=== PATIENT | female | born 1985 | race Hispanic/Latino ===

== ENCOUNTER → 2017-12-08 | Outpatient (CLI) | payer OTHER | END | disposition home or self-care (01) | LOC: OIH 14:59 | PROVIDERS: ATTEND Internal Medicine | DX: M25.561 Pain in right knee (principal); M47.896 Other spondylosis, lumbar region; K59.00 Constipation, unspecified | CPT/HCPCS: 72100; 73560 ==

== ENCOUNTER 2022-06-29 19:41 | Emergency (ER) | payer OTHER ==
[~2022-06-29] VITALS: Ht 167.6 cm; Wt 72.6 kg
[2022-06-29] MEDS ORDERED: IBUPROFEN 600 MG TABLET PO ONE (20:00)
[2022-06-29] MEDS ORDERED: IBUP-2070 PO (20:23)
[2022-06-29 20:29] VITALS: BP 124/76
== END 2022-06-29 20:40 | disposition home or self-care (01) ==
LOC: EDH 19:41
DX: S90.111A Contusion of right great toe without damage to nail, initial encounter (principal); S90.121A Contusion of right lesser toe(s) without damage to nail, initial encounter; X58.XXXA Exposure to other specified factors, initial encounter; Z79.1 Long term (current) use of non-steroidal anti-inflammatories (NSAID); Y93.89 Activity, other specified; Y92.89 Other specified places as the place of occurrence of the external cause; Y99.8 Other external cause status
CPT/HCPCS: 73660

== ENCOUNTER 2022-07-12 16:16 | Emergency (ER) | payer OTHER ==
[~2022-07-12] VITALS: Ht 167.6 cm; Wt 72.6 kg
[~2022-07-12 16:16] MED LIST: IBUP-2070 PO
[2022-07-12] MEDS ORDERED: ACETAMINOPHEN 500 MG TABLET PO ONE (17:30)
[2022-07-12] MEDS: KETOROLAC 15MG/ML VIAL (15MG/ML) IV ONE (17:55)
[2022-07-12] MEDS: ONDANSETRON 4MG INJ IVP ONE (17:55)
[2022-07-12] MEDS: 0.9%NACL 1000ML 1,000 ML IV ONE (17:55)
[2022-07-12 18:37] VITALS: BP 94/48
[2022-07-12] MEDS ORDERED: IBUP-2070 PO (18:43)
[2022-07-12] MEDS ORDERED: ACET-66 PO (18:43)
[2022-07-12] MEDS ORDERED: ONDA4TAB10 PO (18:43)
== END 2022-07-12 19:09 | disposition home or self-care (01) ==
LOC: EDH 16:16
DX: U07.1 COVID-19 (principal)
CPT/HCPCS: 99284; 96374; 87635; 96361; 96375; 87880; 87804 ×2; C9803; J7030; J2405; J1885

== ENCOUNTER 2023-07-09 16:04 | Emergency (ER) | payer OTHER ==
[~2023-07-09] VITALS: Ht 167.6 cm; Wt 66.7 kg
[~2023-07-09 16:04] MED LIST changes: +ACET-66 PO; +ONDA4TAB10 PO
[2023-07-09 16:12] VITALS: BP 113/70; PULSE 83; RESP 16; O2SAT 98
== END 2023-07-09 21:20 | disposition home or self-care (01) ==
LOC: EDH 16:04
DX: N63.10 Unspecified lump in the right breast, unspecified quadrant (principal); Z79.899 Other long term (current) drug therapy; Z98.890 Other specified postprocedural states
CPT/HCPCS: 99282

== ENCOUNTER 2024-06-03 23:46 | Emergency (ER) | payer OTHER ==
[~2024-06-03] VITALS: Ht 162.6 cm; Wt 78.9 kg
[~2024-06-03 23:46] MED LIST changes: +ONDA-243 PO; -ONDA4TAB10 PO
[2024-06-04] MEDS: LIDOCAINE/PRILOCAINE CREAM 5GM TUBE TP ONE (00:15)
[2024-06-04] MEDS: SILVER NITRATE APPLICATOR 1 SWAB TP ONE (00:15)
[2024-06-04] MEDS: LIDOCAINE HCL 1% 20 ML VIAL INJ SCH (00:18)
[2024-06-04] MEDS: SILVER NITRATE APPLICATOR 1 SWAB TP SCH (00:18)
[2024-06-04] MEDS: ACETAMINOPHEN WITH CODEINE 1 TAB TAB PO ONE (00:18)
[2024-06-04] MEDS: LIDOCAINE/PRILOCAINE CREAM 30 GM TUBE TP SCH (00:18)
[2024-06-04] MEDS: TETANUS/DIPHTHERIA TOXOID [ADULT] 0.5 ML VIAL IM ONE (00:42)
[2024-06-04 00:56] VITALS: BP 118/66; PULSE 99; RESP 20; O2SAT 99
[2024-06-04] MEDS: NEOMY SULF/BACITRA/POLYMYXIN B 1 EACH PACKET TP ONE (01:17)
[2024-06-04] MEDS ORDERED: CEPH500B PO (01:20)
== END 2024-06-04 01:57 | disposition home or self-care (01) ==
LOC: EDH 23:46
DX: S51.812A Laceration without foreign body of left forearm, initial encounter (principal); G89.29 Other chronic pain; Z79.899 Other long term (current) drug therapy; Y08.89XA Assault by other specified means, initial encounter; Y93.89 Activity, other specified; Y92.89 Other specified places as the place of occurrence of the external cause; Y99.8 Other external cause status
CPT/HCPCS: 12002; 90471; 90714; J3490

== ENCOUNTER 2024-11-25 13:24 | Emergency (ER) | payer OTHER ==
[~2024-11-25] VITALS: Ht 167.6 cm; Wt 68.9 kg
[~2024-11-25 13:24] MED LIST changes: +CEPH500B PO
[2024-11-25 15:19] LABS: COVID19 (SARS ANTIGEN RAPID) PRESUMPTIVE NEGATIVE (NEGATIVE); INFLUENZA TYPE A Negative For Type A (NEGATIVE); INFLUENZA TYPE B Negative For Type B (NEGATIVE)
[2024-11-25] MEDS ORDERED: AZIT250T9 PO (15:49)
--- NOTE | 2024-11-25 15:49 | ERN ---
General Chief Complaint: Flu Symptoms Stated Complaint: CP Time Seen by MD: 14:54 History of Present Illness Initial Comments 38-year-old female came in for flu-like symptoms cough runny nose diarrhea. Patient has been having subjective fever. Patient otherwise has no concerns. Allergies: Coded Allergies: No Known Allergies (Unverified Allergy, Unknown, 06/29/22) Home Meds Active Scripts Cephalexin Monohydrate (Keflex) 500 Mg Cap, 500 MG PO QID for 7 Days, #28 CAP Prov:RADHA SOLORIO MD 06/04/24 Acetaminophen (Tylenol) 500 Mg Tab, 500 MG PO Q4HPRN PRN for FEVER, #30 TAB Prov:FITTING,BRYSON FUR REMODELER 07/12/22 Ibuprofen (Ibuprofen) 600 Mg Tablet, 600 MG PO Q6H PRN for PAIN, #15 TAB Prov:FITTING,VASILIY-GERARD FUR REMODELER 07/12/22 Ondansetron (Ondansetron Odt) 4 Mg Tab.rapdis, 4 MG PO TID, #15 TAB Prov:FITTING,BRYSON FUR REMODELER 07/12/22 Ibuprofen (Ibuprofen) 600 Mg Tablet, 600 MG PO Q6H PRN for PAIN, #15 TAB Prov:FITTING,VASILIY-GERARD FUR REMODELER 06/29/22 Past Medical History Past Medical History: Other Medical History Other: RESTLESS LEG SYNDROME Past Surgical History: None Surgical History Other: D&C Family History Family History: Negative Social History Social History: Negative, Lives with family Female( History) LMP: Nov 20, 2024 : 4 Para: 3 Aborts: 1 ROS Dictation CONSTITUTIONAL: Negative except for HPI HEAD/FACE: Negative except for HPI EENT: Negative except for HPI RESPIRATORY: Negative except for HPI GASTROINTESTINAL/ABDOMINAL: Negative except for HPI GENITOURINARY: Negative except for HPI MUSCULOSKELETAL: Negative except for HPI INTEGUMENTARY: Negative except for HPI NEUROLOGICAL/PSYCH: Negative except for HPI HEMATOLOGIC/LYMPHATIC: Negative except for HPI All Systems Negative, Except as noted above. 13 point review of systems assessed and all negative except for above. Physical Exam Physical Exam Dictation Vital Signs reviewed General Appearance: Alert, oriented x 3, no acute distress, well developed, nourished. Head and Face: non-traumatic. Eyes: PERRL, pink conjunctivas, eyelid no trauma, anterior chamber with arcus senilis. Ears: Pinnas intact and no signs of trauma or erythema ear canals clear and no discharge TM no erythema Nose: No discharge, no bleeding. Oropharynx: Mouth normal, tongue pink, pharynx clear,no erythema, tonsils no exudates, no abscesses noted, mucous membrane moist Neck: Supple, non-tender, no thyromegaly, no masses, no JVD, no bruits Breast:Deferred Chest:No tenderness, no crepitus, no paradoxical movement, no retractions Lungs:Clear, well-ventilated, symmetric, no rales, no wheezing, no rhonchi, no stridor, good breath sounds bilaterally Heart: Regular rate, regular rhythm, no murmur, no gallops Vascular: no peripheral edema, Abdomen: Soft, positive bowel sounds, nondistended, no guarding, nontender, no rebound, no masses no hepatomegaly, no splenomegaly, no Pate's sign, no hernias. Rectal: Deferred Genital: Deferred Neurological: Normal speech, motor function intact, sensory function intact Musculoskeletal: Neck nontender, full range of motion, back nontender, full range of motion, Extremities: nontender, full range of motion Skin: Color pink, dry, no turgor, no rash, no lacerations, no abrasions, no contusions. Lymphatic: Deferred Results Laboratory and Microbiology Lab and Micro Result Laboratory Tests Test 11/25/24 14:03 Influenza Type A Antigen Negative For Type A Influenza Type B Antigen Negative For Type B SARS-CoV-2 Antigen (Rapid) PRESUMPTIVE NEGATIVE MDM MDM: Differential diagnosis: There are no social concerns with this patient. Prescription drug management Prescriptions will include: Medical management and examination interpretation discussions were had by me with other qualified healthcare professionals as indicated for the patient's care. ED Course Orders Procedure Category Date Status Time Covid19 (Sars Antigen LAB 11/25/24 Complete Rapid) 14:02 Influenza Type A & B, LAB 11/25/24 Complete Rapid 14:02 12 Lead Ekg Tracing- EKG 11/25/24 Logged Technical 14:02 Vital Signs Date Time Temp Pulse Resp B/P (MAP) Pulse Ox O2 Delivery O2 Flow Rate FiO2 11/25/24 14:03 98.6 89 20 112/68 99 Room Air 0 DX & DISP Disposition: Discharge Departure Impression: Primary Impression: Viral syndrome Additional Impression: URI (upper respiratory infection) Condition: Stable Scripts Azithromycin (Azithromycin) 250 Mg Tablet 250 MG PO DAILY for 5 Days, #5 TAB Prov: WYATT CERVANTES MD 11/25/24 Referrals: ANGEL THOMAS DO (PCP) YWATT CERVANTES MD Nov 25, 2024 15:49
[2024-11-25] MEDS: DICYCLOMINE HCL 10 MG/5 ML ML PO ONE (16:28)
[2024-11-25] MEDS: PANTOPrazole 40 MG TAB DR PO ONE (16:28)
[2024-11-25] MEDS: LIDOCAINE HCL 2% VISCOUS 15 ML UDCUP PO ONE (16:28)
[2024-11-25] MEDS: MAG/ALUM/SIMETH 30 ML UDCUP PO ONE (16:28)
[2024-11-25] MEDS ORDERED: ONDA-243 PO (16:29)
[2024-11-25] MEDS ORDERED: PANTOPrazole 40 MG/VIAL IVP ONE (16:30)
[2024-11-25] MEDS ORDERED: FAMO10TA39 PO (16:30)
[2024-11-25] MEDS: ondanSETRON ODT 4MG TAB SL ONE (16:36)
[2024-11-25] MEDS: FAMOTIDINE 20MG TAB PO ONE (16:36)
[2024-11-25 16:43] VITALS: BP 127/62; PULSE 78; RESP 18; TEMP 98.2; O2SAT 98
--- NOTE | 2024-11-25 16:55 | EKG ---
[facility] Test Date: 2024-11-25 Test Time: 13:51:07 Pat Name: UDAY CARR Department: [facility] Room: Gender: F Network Support Technician: [id number] : 1985 Requested By: ALICE SWANN Order Number: [id number] Reading MD: Malik Carr Measurements Intervals [place] Rate: 75 P: 67 VA: 119 QRS: 96 QRSD: 83 T: 36 QT: 419 QTc: 470 Interpretive Statements Sinus rhythm No previous ECG available for comparison Electronically Signed On 11-26-2024 14:08:59 STAFF READINESS OFFICER by Malik Carr Please click the below link to view image of tracing.
== END 2024-11-25 16:44 | disposition home or self-care (01) ==
LOC: EDH 13:24
DX: J06.9 Acute upper respiratory infection, unspecified (principal); B97.89 Other viral agents as the cause of diseases classified elsewhere; G25.81 Restless legs syndrome; Z20.822 Contact with and (suspected) exposure to COVID-19; Z79.899 Other long term (current) drug therapy; Z98.890 Other specified postprocedural states
CPT/HCPCS: 87426; 87804; 93005; 99284